=== PATIENT | female | born 1965 | race Caucasian/White ===

== ENCOUNTER 2017-08-28 17:48 | Emergency (ER) | payer BC, OTHER ==
[~2017-08-28] VITALS: Ht 165.1 cm; Wt 127.3 kg
[2017-08-28 18:34] LABS: HEMATOCRIT 38.5 % (36.0-46.0); HEMOGLOBIN 12.8 G/DL (11.9-15.5); MCHC 33.2 G/DL (30.0-36.0); MCV 90.2 FL (83-99); PLATELET COUNT 227 K/uL (156-360); RBC DIS.WIDTH-CV 12.8 % (11.8-14.6); RBC DIS.WIDTH-SD 42.5 % (39-53); RED BLOOD COUNT 4.27 M/uL (3.80-5.20)
[2017-08-28 18:43] LABS: CHLORIDE 103 mEq/L (99-109); POTASSIUM 3.9 mEq/L (3.7-5.4); SODIUM 139 mEq/L (136-147)
[2017-08-28 18:45] LABS: GLUCOSE 111 mg/dL (70-99)
[2017-08-28 18:48] LABS: CREATININE 0.9 mg/dL (0.6-1.3); GFR ESTIMATE (CALCULATED) > 59 mL/min/
[2017-08-28 18:49] LABS: UREA NITROGEN (BUN) 19 mg/dL (9-23)
[2017-08-28] MEDS ORDERED: GABAPENTIN600 MG PO (19:01)
[2017-08-28] MEDS ORDERED: FUROSEMIDE20 MG PO (19:02)
[2017-08-28] MEDS ORDERED: CENTRUM SILVER1 EAC3 PO (19:02)
[2017-08-28] MEDS ORDERED: CITALOPRAM HBR40 MG PO (19:03)
[2017-08-28] MEDS ORDERED: PANTOPRAZOLE SO40 MG PO (19:03)
[2017-08-28] MEDS ORDERED: LAMICTAL200 MG PO (19:04)
[2017-08-28] MEDS ORDERED: SIMVASTATIN5 MG PO (19:04)
[2017-08-28] MEDS ORDERED: ATACAND HCT PO (19:04)
[2017-08-28] MEDS ORDERED: ATIVAN1 MG PO (19:25)
[2017-08-28 21:23] VITALS: BP 118/71
== END 2017-08-28 21:27 | disposition home or self-care (01) ==
LOC: EME 17:48
PROVIDERS: Emergency Medicine Emergency Medical Services
DX: G40.909 Epilepsy, unspecified, not intractable, without status epilepticus (principal); I10 Essential (primary) hypertension
CPT/HCPCS: 80048; 85027; 99281; 99285; J2060; J7040